=== PATIENT | female | born 1965 | race Caucasian/White ===

== ENCOUNTER 2021-06-15 12:15 | Emergency (ER) | payer OTHER ==
[~2021-06-15] VITALS: Ht 170.2 cm; Wt 69.4 kg
[2021-06-15] MEDS ORDERED: MUCINEX1200 MG PO (14:41)
[2021-06-15] MEDS ORDERED: PROAIR HFA8.5 GM INH (14:41)
== END 2021-06-15 17:08 | disposition home or self-care (01) ==
LOC: ER1 12:15
DX: U07.1 COVID-19 (principal); Z23 Encounter for immunization; Z88.2 Allergy status to sulfonamides
CPT/HCPCS: 99282; M0243